=== PATIENT | male | born 1950 | race Asian ===

== ENCOUNTER 2022-02-21 04:12 | Day surgery (SDC) | payer MEDICARE, OTHER ==
[2022-02-17 13:34] VITALS: BMI 25.7
[2022-02-21] MEDS ORDERED: MIDAZOLAM HCL 2 MG/2 ML SINGLE DOSE VIAL ONE (13:28)
[2022-02-21] MEDS ORDERED: KETAMINE HCL 500 MG/10 ML VIAL ONE (13:28)
[2022-02-21] MEDS ORDERED: SUCCINYLCHOLINE CHLORIDE 200 MG/10 ML SYRINGE ONE (13:37)
[2022-02-21] MEDS ORDERED: ceFAZolin SODIUM 1 GM VIAL IVPB ONE (13:50)
[2022-02-21 14:32] VITALS: RESP 20
[2022-02-21 15:37] VITALS: BP 130/80; PULSE 70; TEMP 98
== END 2022-02-21 15:20 | disposition home or self-care (01) ==
LOC: JASU-SURG 04:12
PROVIDERS: ATTEND Urology
PROC: 0TF4XZZ Fragmentation in Left Kidney Pelvis, External Approach (ICD-10-PCS; principal; 2022-02-21 13:00)
DX: N20.0 Calculus of kidney (principal)